=== PATIENT | male | born 1960 | race African-American/Black ===

== ENCOUNTER 2022-01-12 15:41 | Inpatient (IN) | payer BC, MEDICAID ==
[~2022-01-12] VITALS: Ht 177.8 cm; Wt 81.6 kg
[2022-01-12 15:41] VITALS: BP 108/73
--- NOTE | 2022-01-12 16:04 | NUR ---
[facility] CALLED FOR MORE PT INFO . NO NURSES AVAILABLE, MESSAGE LEFT WITH [employer] DEV[employer]OPER. CALL BACK NUMBER PROVIDED Addendum: 01/12/22 at 1750 by [facility] [phone]
--- NOTE | 2022-01-12 16:10 | NUR ---
61YO MALE PT BIBA FROM [facility] DUE TO GTUBE PULL OUT [id number]. PER [facility] , FACILITY STATES PT PULLED GTUBE OUT HIMSELF AND OFTEN FIDGETS ARMS ACROSS ABDOMEN. PT NON VERBAL AT BASELINE BUT IS AROUSABLE TO TOUCH AND VOICE. PT G TUBE SITE PRESENTS OPEN AND RED, NO ACTIVE BLEEDING. PT ABDOMEN NON TENDER TO TOUCH, FIRM , ROUND AND ACTIVE X4. NO VISIBLE DISTRESS W/ RESPIRATIONS EVEN AND UNLABORED, SKIN WARM TO TOUCH. NO WOUNDS PRESENT . BILATERAL FEET FLEXION ,PILLOWS PLACED UNDER PT FEET. PT PUT ON MONITOR, BED AT LOWEST POSITION , BED RAIL UP X2. HX: DM2, HTN, OSTEOPOROSIS, GERD, DYSPHAGIA, NONTRAUMATIC INTRACRANIAL HEMMORRHAGE, ENCEPHALOPATHY NKA
--- NOTE | 2022-01-12 17:52 | NUR ---
2ND ATTEMPT TO CONTACT FACILITY. ON HOLD WITH NO ANSWER
--- NOTE | 2022-01-12 18:25 | NUR ---
PT SWABBED FOR COVID(SUNITA) . HANDED TO LOAN INSPECTOR
[2022-01-12 18:56] LABS: BASOPHILS # (AUTO) 0.1 K/uL (0.00-0.22); BASOPHILS % (AUTO) 0.9 % (0.0-2.0); EOSINOPHILS # (AUTO) 0.1 K/uL (0-0.4); EOSINOPHILS % (AUTO) 0.4 % (0.0-4.0); HEMATOCRIT 44.5 % (36-52); HEMOGLOBIN 14.5 g/dL (12.0-18.0); LYMPHOCYTES # (AUTO) 2.9 K/uL (2.0-11.5); LYMPHOCYTES % (AUTO) 22.8 % (20.5-51.1); MEAN CORPUSCULAR HEMOGLOBIN 22 pg (27-31); MEAN CORPUSCULAR HGB CONC 33 g/dL (33-37); MEAN CORPUSCULAR VOLUME 67.3 fL (80-94); MONOCYTES # (AUTO) 1.3 K/uL (0.8-1.0); MONOCYTES % (AUTO) 10.5 % (1.7-9.3); NEUTROPHILS # (AUTO) 8.4 K/uL (1.8-7.7); NEUTROPHILS % (AUTO) 65.4 % (42.2-75.2); PLATELET COUNT (AUTO) 321 K/uL (140-450); RED BLOOD CELL COUNT(AUTO) 6.61 MIL/uL (4.20-6.10); RED CELL DISTRIBUTION WIDTH 14.3 % (11.6-13.7); WHITE BLOOD COUNT (AUTO) 12.8 K/uL (4.8-10.8)
[2022-01-12] MEDS ORDERED: AMLO10TA88 GT (18:59)
[2022-01-12] MEDS ORDERED: ASPI-1822 PO (18:59)
[2022-01-12] MEDS ORDERED: BACL10TA4 GT (18:59)
[2022-01-12] MEDS ORDERED: MAGN400S60 GT (19:21)
[2022-01-12] MEDS ORDERED: LANS30EC68 GT (19:21)
[2022-01-12] MEDS ORDERED: CALC-1646 GT (19:25)
--- NOTE | 2022-01-12 19:28 | NUR ---
REPORT GIVEN TO HECTOR DESIR. TRANSFER OF CARE AT THIS TIME
[2022-01-12 20:09] LABS: ALBUMIN 3.4 g/dL (3.4-5.0); ANION GAP 13.1 (8-16); CARBON DIOXIDE 30.4 mmol/L (21-32); CREATININE 0.6 mg/dL (0.6-1.3); POTASSIUM 3.5 mmol/L (3.5-5.1); PROTHROMBIN TIME 11.4 secs (10.8-13.4); TOTAL BILIRUBIN 0.7 mg/dL (0.0-1.0)
--- NOTE | 2022-01-12 20:17 | NUR ---
61YR MALE FROM [facility] C/O GTUBE DISLODGE. SITE IS FREE OF ANY DISCHARGE OR REDDNESS. PT IS NON VERBAL . BED BOUND INCOT WITH DIAPER. PT WILL BE ADMITTED FOR GTUBE REPLACEMENT. PT IS HOB ELEVATED. BED AT LOWEST POSITION.
--- NOTE | 2022-01-12 20:30 | NUR ---
PT CLEANED AND DIAPER CHANGED
[2022-01-12] MEDS ORDERED: guaiFENesin DM 200/20 MG-10 ML 10 ML UDC PO PRN (21:45)
[2022-01-12] MEDS ORDERED: POTASSIUM CHLORIDE 10 MEQ TABER PO PRN (21:45)
[2022-01-12] MEDS ORDERED: ZOLPIDEM 5 MG TAB PO PRN (21:45)
[2022-01-12] MEDS ORDERED: DOCUSATE SODIUM 100 MG GELCAP PO PRN (21:45)
[2022-01-12] MEDS ORDERED: ACETAMINOPHEN 325 MG TAB PO PRN (21:45)
[2022-01-12] MEDS ORDERED: HYDROcodone/APAP 7.5/325 MG 1 TAB PO PRN (21:45)
[2022-01-12] MEDS ORDERED: ONDANSETRON 4 MG/2 ML VIAL IM/IVP PRN (21:45)
[2022-01-12] MEDS ORDERED: DEXTROSE 5% 1,000 ML IV ONE (21:50)
[2022-01-12 22:47] LABS: MAGNESIUM 2.2 mg/dL (1.8-2.4); PHOSPHORUS 3.3 mg/dL (2.5-4.9)
--- NOTE | 2022-01-13 | NUR ---
PT CLEANED AND DIAPER CHANGED. TURNED PT TO SIDE
--- NOTE | 2022-01-13 03:35 | NUR ---
PT SLEEPING RESP EVEN AND UNLABORED. HOB ELEVATED BED AT LOWEST POSITION
--- NOTE | 2022-01-13 05:51 | NUR ---
CHANGED PT AND APPLIED CLEAN DIAPER. TURNED PT TO LEFT SIDE. HOB ELEVATED 30 DEGRESS. BED AT LOWEST POSITION
--- NOTE | 2022-01-13 07:24 | NUR ---
REPORT RECIEVED FROM THANG YOUNG FOR TRANSFER OF CARE.
--- NOTE | 2022-01-13 08:31 | NUR ---
DR MATA, ADMITTING MD AT BEDSIDE EVALUATING PT
--- NOTE | 2022-01-13 08:43 | NUR ---
Informed Dr. Stovall about PO Protonix, per Dr. Stovall "don't worry about it."
[2022-01-13] MEDS: PANTOPRAZOLE 40 MG TABEC PO SCH (09:00)
--- NOTE | 2022-01-13 10:30 | NUR ---
Urine sample obtained, walked to lab.
--- NOTE | 2022-01-13 11:01 | NUR ---
Patient was turned and repositioned. Patient was made clean and dry.
--- NOTE | 2022-01-13 11:08 | NUR ---
PATIENT HAS BEEN SCREENED AND CATEGORIZED HIGH NUTRITION RISK. PATIENT WILL BE SEEN WITHIN 1-2 DAYS OF ADMISSION. / TAWANNA SANDOVAL RD
--- NOTE | 2022-01-13 11:23 | NUR ---
01/13/22 RD INITIAL ASSESSMENT COMPLETED PLEASE REFER TO NUTRITION ASSESSMENT UNDER CARE ACTIVITY FOR ESTIMATED NUTRITIONAL NEEDS. 1. WHEN/IF MEDICALLY APPROPRIATE, RECOMMEND VITAL AF 1.2 WITH A GOAL RATE OF 65 ML/HR -FWF: 150 ML Q6H OR PER MD -START AT 20 ML/HR AND INCREASE BY 20 ML Q4H TOLERATED -WILL PROVIDE 100% OF ESTIMATED NUTRIENT NEEDS 2. RD TO FOLLOW-UP 2-3 DAYS, HIGH RISK TAWANNA SANDOVAL, RD
--- NOTE | 2022-01-13 13:06 | NUR ---
CALL PTS BROTHER ROWAN VILLAFUERTE ([phone]) FOR UPDATE AND NOTIFY WHEN HE MOVES TO THE FLOOR.
--- NOTE | 2022-01-13 14:02 | NUR ---
Patient is being provided with aubrey-care. Patient was left clean, dry and repositioned.
--- NOTE | 2022-01-13 14:56 | NUR ---
Patient's D5 bag is finished. Informed Dr. Stovall of bag finishing. Current blood sugar is 113. Recieved new orders from Dr. Stovall to continue IV D5 120cc/hour until G-tube is placed.
[2022-01-13] MEDS: DEXTROSE 5% 1,000 ML IV SCH ×2 (15:14→23:20)
--- NOTE | 2022-01-13 15:24 | NUR ---
DC PLANNING: THE PATIENT PRESENTED FROM [facility] WITH C/O G TUBE BEING OUT, PATIENT DC'D IT. GI CONSULT ORDERED FOR EVALUATION TO REPLACE G TUBE. WBC'S 12.8, NA+ 154. RAFIQ SPOKE WITH MAGALY AT [facility], THE PATIENT IS FPC WITH THEM THROUGH H-NET M/[facility]. HE IS NON-VERBAL SECONDARY TO CVA, HIS BROTHER ROWAN MAKES HIS DECISIONS. HE IS BED AND WC BOUND, RAFIQ SPOKE WITH HIS BROTHER ROWAN BY PHONE AND CONFIRMED HIS PHONE NUMBER. HE IS THE DPOA FOR HIS BROTHER AND STATES HE IS AVAILABLE AT ANY TIME TO GIVE INFORMATION OR CONSENTS. HE STATES THAT HIS BROTHER HAD A STROKE IN MAY OF 2017 AND WENT TO [facility] IN 2018. HE WOULD LIKE HIS BROTHER TO RETURN TO [facility] ONCE THE G TUBE HAS BEEN REPLACED AND THE PATIENT IS CLINICALLY STABLE. RAFIQ WILL FOLLOW. Addendum: 01/15/22 at 1134 by Claire Monsalve CM DC PLANNING: PLAN FOR PATIENT TO HAVE G TUBE REPLACED, REFERRAL FAXED TO [facility] FOR POSSIBLE DC BACK TO THEM LATER TODAY. THEY ARE WAITING TO REVIEW THE INFORMATION FOR ACCEPTANCE. RAFIQ ALSO SPOKE WITH ZHANG AT [facility], CLINICAL INFORMATION REVIEWED. AUTHORIZATION GIVEN FOR [email or web address] ([phone]), # [id number]. PATIENT WILL RETURN AT FPC LEVEL. CM WILL FOLLOW. Addendum: 01/15/22 at 1211 by Claire Monsalve CM DC PLANNING: PATIENT ACCEPTED TO ROOM 109B AT [facility], DR HINSON TO FOLLOW. NUMBER TO CALL REPORT IS [phone]. PATIENT TO BE PICKED UP BETWEEN 1800 AND 1900 BY [facility]. CM ALSO SPOKE WITH THE PATIENTS BROTHER ROWAN TO ENDORSE JANITOR TIME. CM WILL FOLLOW Addendum: 01/16/22 at 0829 by Claire Monsalve CM DC PLANNING: PATIENT DID NOT NOT DC, SPIKED TEMPERATURE TO 102.8, BLOOD CULTURES ORDERED. CM WILL FOLLOW. Addendum: 01/16/22 at 1053 by Claire Monsalve CM DC PLANNING: IF PATIENT IS DISCHARGED THIS WEEKEND, [facility] CAN BE USED, THEY ARE AVAILABLE WEDNESDAY AND WEDNESDAY BUT HAVE FEW TRANSPORTS AVAILABLE ON SUNDAYS. THEIR PHONE NUMBER IS [phone], AUTH NUMBER FROM [employer] FOR [facility] IS [id number]. CM ALSO SPOKE WITH MAGALY AT [facility] TO ENDORSE POSSIBLE DC TO THEM THIS WEEKEND, NURSING WILL NEED TO CALL UPDATED REPORT AND CONFIRM ROOM ASSIGNMENT. CM WILL FOLLOW.
--- NOTE | 2022-01-13 17:42 | NUR ---
Patient was provided with aubrey-care. Patient was made clean, dry and repositioned.
--- NOTE | 2022-01-13 17:56 | NUR ---
radiology at bedside.
--- NOTE | 2022-01-13 19:19 | NUR ---
Pt report given to THANG Hussein. Transfer of care at this time.
--- NOTE | 2022-01-13 21:58 | NUR ---
Patient will be admitted to care of [facility]. Admited to telemetry. Will go to room 112a. Belongings list completed. Report to michael.
[2022-01-14 01:54] VITALS: BP 120/69
[2022-01-14 07:12] LABS: BASOPHILS # (AUTO) 0.1 K/uL (0.00-0.22); BASOPHILS % (AUTO) 0.5 % (0.0-2.0); EOSINOPHILS # (AUTO) 0.1 K/uL (0-0.4); EOSINOPHILS % (AUTO) 0.7 % (0.0-4.0); HEMATOCRIT 43.7 % (36-52); HEMOGLOBIN 14.2 g/dL (12.0-18.0); LYMPHOCYTES # (AUTO) 1.8 K/uL (2.0-11.5); LYMPHOCYTES % (AUTO) 14.7 % (20.5-51.1); MEAN CORPUSCULAR HEMOGLOBIN 22 pg (27-31); MEAN CORPUSCULAR HGB CONC 32 g/dL (33-37); MEAN CORPUSCULAR VOLUME 67.8 fL (80-94); NEUTROPHILS # (AUTO) 9.5 K/uL (1.8-7.7); NEUTROPHILS % (AUTO) 76.1 % (42.2-75.2); PLATELET COUNT (AUTO) 271 K/uL (140-450); RED BLOOD CELL COUNT(AUTO) 6.44 MIL/uL (4.20-6.10); RED CELL DISTRIBUTION WIDTH 14.3 % (11.6-13.7); WHITE BLOOD COUNT (AUTO) 12.5 K/uL (4.8-10.8)
--- NOTE | 2022-01-14 07:25 | NUR ---
RECEIVED BEDSIDE REPORT FROM ASSISTANT PROFESSOR OF HISTORY NURSE FOR CONTINUITY OF CARE. PT IS APHASIC. ON RA WITH BREATHING UNLABORED. ON TELE MONITOR. G TUBE MALFUNCTION DX. CONDOM CATH IN PLACE. SKIN IS WARM, DRY, AND INTACT. IV IS INTACT AND PATENT. PT IS STABLE. PLAN OF CARE DISCUSSED.
[2022-01-14] MEDS: DEXTROSE 5% 1,000 ML IV SCH ×2 (07:41→17:51)
[2022-01-14 07:49] LABS: ANION GAP 12.7 (8-16); CARBON DIOXIDE 29.7 mmol/L (21-32); CREATININE 0.5 mg/dL (0.6-1.3); POTASSIUM 3.4 mmol/L (3.5-5.1)
[2022-01-14 08:00] VITALS: BP 121/85
[2022-01-14] MEDS: PANTOPRAZOLE 40 MG TABEC PO SCH (09:00)
--- NOTE | 2022-01-14 09:50 | NUR ---
PT WAS GIVEN BED BATH AND PT WAS REPOSITIONED. NEW LINENS WERE PLACED. NO DISTRESS NOTED. PT STABLE. WILL CONTINUE TO MONITOR.
--- NOTE | 2022-01-14 10:25 | NUR ---
PT. WITH LOW ISHMAEL SCALE AT MODERATE TO HIGH RISK, CONTINUE TO FOLLOW PRESSURE INJURY PREVENTION INTERVENTIONS. -POSITIONING: TURN AND REPOSITION PATIENT Q 2H OR SOONER USE PILLOWS TO KEEP BONY PROMINENCES FROM DIRECT CONTACT WITH SURFACES USE REPOSITIONING WEDGES TO PROVIDE 30-DEGREE ANGLE FOR SIDE LYING POSITIONS OFFLOADING OR FOAM DRESSING TO ALL TUBING TO PREVENT MEDICAL DEVICES RELATED PRESSURE INJURY -RE-EVALUATING AND MANAGING INCONTINENCE MONITOR SKIN CONDITION DURING POSITION CHANGE DO NOT MASSAGE REDNESS, BONY PROMINENCES FREQUENT ALBERT-CARE AND PROVIDE BARRIER CREAMS PRN IF SOILING MOISTURE CONTROL BY OFFER BED DACOSTA/URINAL /ABSORBENT PAD TO WICK AND HOLD MOISTURE KEEP SKIN DRY AND PROTECT FROM FRICTION -MANAGE FRICTION/SHEAR/MOBILITY KEEP HOB AT THE LOWEST LEVEL OF ELEVATION NO MORE THAN 30 DEGREE UNLESS OTHERWISE CONTRAINDICATED USE LIFT SHEET OR TRANSFER DEVICE TO MOVE PATIENT AND PREVENT LATERAL SHEER. PROTECT HEELS, ELBOWS BONY PROMINENCES WITH SKIN BERRIES OR FOAM DRESSING IF EXPOSED TO FRICTION OFFLOAD BILATERAL HEELS BY PLACING PILLOWS UNDER CALVES AT ALL TIMES, UNLESS OTHERWISE CONTRAINDICATED -PRESSURE REDISTRIBUTION SURFACE THERAPY REGGIE ISOFLEX MATTRESS -NUTRITION: PLEASE FOLLOW RD RECOMMENDATIONS AND OFFER NUTRITION SUPPLEMENTS IF ORDERED. PLEASE CONTACT WOUND CARE NURSE FOR ANY QUESTION AND CHANGE OF WOUND CONDITION.
[2022-01-14 12:00] VITALS: BP 100/70
--- NOTE | 2022-01-14 12:00 | NUR ---
PT IS RESTING IN SEMI FOWLERS POSITION. NO RESPIRATORY DISTRESS NOTED. PT IS AWAKE WITH EYES OPEN. DOES NOT RESPOND TO QUESTIONS, APHASIC. FLACC 0. PT STABLE.
[2022-01-14] MEDS ORDERED: MORPHINE SULFATE 4 MG/ML SYR IVP SCH (13:45)
--- NOTE | 2022-01-14 14:14 | NUR ---
PT WAS GIVEN MORPHINE 4 MG IVP PRIOR TO DR. PARKINSON ATTEMPTING TO RE-INSERT G TUBE. PT TOLERATING THIS FAIRLY, NO PAIN NOTED. DR. PARKINSON WAS UNABLE TO PLACE THE G TUBE THE OPENING HAS ALREADY CLOSED. DR. PARKINSON, PRIMARY RN, AND KEVIN CHARGE NURSE OBTAINED TELEPHONE CONSENT FOR G TUBE INSERTION VIA SURGERY FROM ROWAN VILLAFUERTE, [place]. ALL QUESTIONS ANSWERED. BROTHER ROWAN CONSENTED TO PROCEDURE. PT WAS TAKEN TO THE OR. WILL WAIT FOR ARRIVAL BACK TO UNIT.
[2022-01-14] MEDS ORDERED: fentaNYL citrate 0.05 MG/ML VIAL ONE (14:19)
[2022-01-14] MEDS ORDERED: MIDAZOLAM 2 MG/2 ML VIAL ONE (14:20)
--- NOTE | 2022-01-14 15:25 | NUR ---
PT IS BACK FROM THE GI LAB. DR. PARKINSON WAS UNABLE TO PLACE THE G TUBE BECAUSE THE PT WAS CLENCHING HIS TEETH SHUT. PT WAS BROUGHT BACK FROM THE GI LAB AND IS STABLE. BROTHER ROWAN IS AT THE BEDSIDE. WAS INFORMED BY JASWANT, OR NURSE, THAT THEY WILL SCHEDULE TO PLACE G TUBE UNDER ANESTHESIA ON WEDNESDAY. VS ARE STABLE; BP IS 121/79, HR 106, O2 SAT 95% ON RA, RR 20, AND TEMP 98.0 F.
[2022-01-14] MEDS ORDERED: MIDAZOLAM 2 MG/2 ML VIAL IVP ONE (15:50)
[2022-01-14] MEDS ORDERED: fentaNYL citrate 0.05 MG/ML VIAL IVP ONE (15:50)
[2022-01-14 16:00] VITALS: BP 107/78
--- NOTE | 2022-01-14 17:04 | NUR ---
BROTHER JUST LEFT THE BEDSIDE. PT IS SLEEPING IN SEMI FOWLERS POSITION. BREATHING IS UNLABORED AND REGULAR. PT WAS CHANGED AND REPOSITIONED. URINE WAS YELLOW, STRAW COLORED. PT IS STABLE.
--- NOTE | 2022-01-14 19:08 | NUR ---
ENDORSED PT TO DIRECTOR PRESALES NURSE FOR CONTINUITY OF CARE. PT IS STABLE. PLAN OF CARE DISCUSSED.
--- NOTE | 2022-01-14 19:30 | NUR ---
RECEIVED REPORT FROM DAY SHIFT NURSE YADIEL FOR CONTINUITY OF CARE. PATIENT WAS LYING SUPINE IN BED. PATIENT IS APHASIC. PATIENT IS CURRENTLY NOT IN ANY DISTRESS. PATIENT IS ON ROOM AIR, BREATHING IS NORMAL WITH SYMMETRICAL RISE AND FALL OF CHEST. IV IS PLACED IN LEFT HAND 22G WITH D5 RUNNING AT 70ML/HR. PATIENT IS AWAKE, BED IS IN LOWEST POSITION WITH WHEELS LOCKED, CALL LIGHT IS WITHIN REACH. WILL CONTINUE TO OBSERVE PATIENT.
[2022-01-14 20:00] VITALS: BP 132/81
--- NOTE | 2022-01-14 21:21 | NUR ---
PATIENT IS LYING ON BED, NO ANY COMPLAIN OF PAIN OR SHORTNESS OF BREATH AT THIS TIME, VITAL SIGN IS WITHIN THE NORMAL RANGE, CALL LIGHT IS WITHIN THE REACH, WILL CONTINUE TO MONITOR PATIENT.
[2022-01-15] VITALS (7 sets, daily range): BP systolic 110–132; BP diastolic 82–99
--- NOTE | 2022-01-15 00:19 | NUR ---
PATIENT IS LYING ON BED, VITAL SIGN IS WITHIN THE NORMAL RANGE, NO ANY RESPIRATORY DISTRESS NOTED AT THIS TIME, CALL LIGHT IS WITHIN THE REACH, WILL CONTINUE TO MONITOR PATIENT.
[2022-01-15] MEDS: DEXTROSE 5% 1,000 ML IV SCH (03:55)
--- NOTE | 2022-01-15 03:58 | NUR ---
HUNG NEW BAG OF DEXTROSE RUNNING @ 70ML. PATIENT BREATHING IS NORMAL WITH SYMMETRICAL RISE AND FALL OF CHEST. WILL CONTINUE TO MONITOR.
--- NOTE | 2022-01-15 04:00 | NUR ---
PATIENT 0400 VITALS WERE: BP 123/84, HR 97, TEMP 97.8, O2 96, RR 21. PATIENT WAS LYING IN BED STILL AWAKE FROM WAKING UP WHEN NEW IV BAG WAS HUNG. PATIENT'S BED WAS AT LOWEST LEVEL, BED ALARM WAS ON, WHEELS LOCKED, IV WAS RUNNING D5 @ 70ML/HR. WILL CONTINUE TO OBSERVE PATIENT.
--- NOTE | 2022-01-15 07:25 | NUR ---
RECEIVED REPORT FROM POWER BRAKE REBUILDER. PT IS APHASIC, NON VERBAL. CURRENT ON NPO EXCEPT MEDICATION. PER REPORT, PT WILL HAVE G TUBE PLACEMENT TODAY AT 10AM, CONSENT IN THE CHART. WILL FOLLOW UP TODAY. ALL SAFETY MEASURE IN PLACE, CALL LIGHT WITHIN REACH, WILL CONTINUE TO MONITOR.
--- NOTE | 2022-01-15 07:31 | NUR ---
ENDORSED TO DAY SHIFT NURSE YADIEL FOR CONTINUITY OF CARE. PATIENT IS STABLE.
[2022-01-15 08:05] LABS: HEMOGLOBIN 13.3 g/dL (12.0-18.0); WHITE BLOOD COUNT (AUTO) 10.8 K/uL (4.8-10.8)
[2022-01-15 08:06] LABS: BASOPHILS # (AUTO) 0.1 K/uL (0.00-0.22); BASOPHILS % (AUTO) 0.9 % (0.0-2.0); EOSINOPHILS # (AUTO) 0.3 K/uL (0-0.4); EOSINOPHILS % (AUTO) 2.5 % (0.0-4.0); HEMATOCRIT 40.5 % (36-52); LYMPHOCYTES # (AUTO) 2.7 K/uL (2.0-11.5); LYMPHOCYTES % (AUTO) 25.4 % (20.5-51.1); MEAN CORPUSCULAR HEMOGLOBIN 22 pg (27-31); MEAN CORPUSCULAR HGB CONC 33 g/dL (33-37); MEAN CORPUSCULAR VOLUME 67.5 fL (80-94); MONOCYTES # (AUTO) 1.2 K/uL (0.8-1.0); MONOCYTES % (AUTO) 11.4 % (1.7-9.3); NEUTROPHILS # (AUTO) 6.4 K/uL (1.8-7.7); NEUTROPHILS % (AUTO) 59.8 % (42.2-75.2); PLATELET COUNT (AUTO) 256 K/uL (140-450)
[2022-01-15 08:46] LABS: ANION GAP 12.5 (8-16); CARBON DIOXIDE 29.9 mmol/L (21-32); POTASSIUM 3.4 mmol/L (3.5-5.1)
[2022-01-15 08:47] LABS: CREATININE 0.5 mg/dL (0.6-1.3)
[2022-01-15] MEDS: PANTOPRAZOLE 40 MG TABEC PO SCH (08:59)
--- NOTE | 2022-01-15 09:00 | NUR ---
PO MEDICATION NOT GIVEN DUE TO PT IS NOT ABLE TO SWALLOW MEDICATION, PT IS PENDING FOR G TUBE PLACEMENT.
--- NOTE | 2022-01-15 09:16 | NUR ---
NOTIFIED DR MONACO PT K LEVEL 3.4, PENDING G TUBE PLACEMENT. SAID OK TO GIVE POTASSIUM 20MEQ IV, AND NOTIFY DR PARKINSON FOR G TUBE PLACEMENT. NOTIFIED DR PARKINSON PER MD ORDER.
--- NOTE | 2022-01-15 09:23 | NUR ---
BROTHER AT BEDSIDE AND QUESTIONING ABOUT G TUBE PLACEMENT, NOTIFIED BROTHER PROCEDURE WILL BE START AT 1000AM, STAFF FROM PROCEDURE AT BEDSIDE TO CONFIRM AND STATED WILL BE NAVAL MARINE ENGINEER PT AROUND 20 MIN. ALL QUESTION ANSWERED AT THIS TIME.
[2022-01-15] MEDS ORDERED: KCL 20 MEQ/WATER INJ PREMIX 100 ML IV SCH ×2 (09:30→12:00)
--- NOTE | 2022-01-15 10:30 | NUR ---
PT GO TO SURGERY FOR G TUBE PLACEMENT AT THIS TIME WITH HIS BROTHER AND OPERATION STAFF.
[2022-01-15] MEDS ORDERED: SUGAMMADEX SODIUM 200 MG/2 ML VIAL IV ONE (10:52)
[2022-01-15] MEDS ORDERED: PROPOFOL 200 MG/20 ML VIAL IV ONE (11:20)
--- NOTE | 2022-01-15 11:40 | NUR ---
RECEIVED PHONE CALL FROM [facility], SPEAK WITH COLT, SHE IS ASK IF PT WILL DISCHARGE SOON, NOTIFIED HER WILL DISCHARGE PT TODAY IF G TUBE PLACEMENT FUNCTION WELL PER MD ORDER.
--- NOTE | 2022-01-15 12:00 | NUR ---
PT RETURN FROM OPERATION, G TUBE IN PLACE WITH ABDOMEN BINDER IN PLACE TO PREVENT PT PULLING OUT G TUBE. PT HAS NO DISTRESS NOTED AT THIS TIME.
--- NOTE | 2022-01-15 13:45 | NUR ---
POST OPERATIVE ( G TUBE PLACEMENT) VS CHECK DONE, WITHIN NORMAL, WILL CONTINUE TO MONITOR.
--- NOTE | 2022-01-15 15:45 | NUR ---
PT RESTING ON BED, RESPIRATION EVEN, UNLABORED, NO DISTRESS NOTED. PT HAS JEVITY 1.2 AT 30ML /HR, RESIDUAL 5CC AT THIS TIME, CALL LIGHT WITHIN REACH, WILL CONTINUE TO MONITOR.
--- NOTE | 2022-01-15 16:00 | NUR ---
REPORT GIVEN TO THANG LONG AT [facility] AND INFORMED HER PT WILL BE DISCHARGE TO [facility] TODAY BETWEEN 1800 AND 1900
--- NOTE | 2022-01-15 16:06 | NUR ---
TELEPHONE CALLED TO PT'S BROTHER ROWAN VILLAFUERTE NOTIFIED HIM PT WILL BE DISCHARGE TO [facility] TODAY BETWEEN 1800 TO 1900. HE REQUEST TO GIVE HIM A CALL BACK WHEN GURNEY ARRIVE.
--- NOTE | 2022-01-15 16:55 | NUR ---
[facility] REPORTED PT HAS FEVER 102.8 ORAL. RECHECK TEMPERATURE VIA AXILLARY 102.9, OFFERED PT TYLENOL 650MG VIA G TUBE AND START COOLING MEASURE. WILL CONTINUE TO MONITOR.
--- NOTE | 2022-01-15 17:30 | NUR ---
RECHECK TEMPERATURE AXILLARY 102.6, NOTIFIED DR MONACO AT THIS TIME, AND WAITING TO MD RESPONSE BACK.
--- NOTE | 2022-01-15 17:44 | NUR ---
DR. MONACO REPLIED TO MESSAGE TO KEEP PATIENT AND NOT DISCHARGE. HE STATED HE WILL CANCEL DISCHARGE ORDER. HE ALSO ORDERED CBC, BMP, AND BLOOD CULTURES. Addendum: 01/15/22 at 1748 by Hortenisa Montiel RN ADDITIONAL COOLING MEASURES APPLIED. WILL MONITOR TEMP.
--- NOTE | 2022-01-15 17:47 | NUR ---
CALLED [facility] AND SPEAK WITH [place] TO CANCEL THE TRANSPORTATION TODAY.
--- NOTE | 2022-01-15 17:49 | NUR ---
TELEPHONE CALLED TO [facility] AND SPEAK WITH CINDY MALAVE REGARDING CANCEL THE DISCHARGE ORDER TODAY.
--- NOTE | 2022-01-15 17:54 | NUR ---
TELEPHONE CALLED TO PT'S BROTHER ROWAN AND NOTIFY HIM THAT PT WILL NOT GET DISCHARGE TODAY DUE TO FEVER. HE MAKE AWARE AND SAID WILL CHECK WITH NURSE TOMORROW.
--- NOTE | 2022-01-15 18:00 | NUR ---
TEMPERATURE RECHECK AT THIS TIME 102.4 AXILLARY. CONTINUE COOLING MEASURE. WILL CONTINUE TO MONITOR.
--- NOTE | 2022-01-15 18:47 | NUR ---
RECHECKED TEMP TEMPORAL AND IT WAS 99.[address] MEASURES IN PLACE. PT WAS CHANGED AND REPOSITIONED.
--- NOTE | 2022-01-15 19:00 | NUR ---
TEMPERATURE RECHECK AT THIS TIME 99. WILL ENDORSE TO TUNNELLER FOR CONTINUE MONITOR PT'S TEMPERATURE.
--- NOTE | 2022-01-15 19:00 | NUR ---
TEMPERATURE RECHECK AT THIS TIME 99, WILL ENDORSE TO RACEHORSE TRAINER FOR CONTINUE MONITOR TEMPERATURE. POINT OF CARE DISCUSSED.
--- NOTE | 2022-01-15 19:38 | NUR ---
ENDORSED PT TO TRIMMER HAND NURSE FOR CONTINUITY OF CARE. PT IS STABLE. PLAN OF CARE DISCUSSED.
[2022-01-15 20:17] LABS: BASOPHILS # (AUTO) 0.1 K/uL (0.00-0.22); BASOPHILS % (AUTO) 0.3 % (0.0-2.0); EOSINOPHILS # (AUTO) 0.1 K/uL (0-0.4); EOSINOPHILS % (AUTO) 0.3 % (0.0-4.0); HEMOGLOBIN 14.3 g/dL (12.0-18.0); LYMPHOCYTES # (AUTO) 2.7 K/uL (2.0-11.5); LYMPHOCYTES % (AUTO) 14.6 % (20.5-51.1); MEAN CORPUSCULAR HEMOGLOBIN 22 pg (27-31); MEAN CORPUSCULAR HGB CONC 33 g/dL (33-37); MEAN CORPUSCULAR VOLUME 67.2 fL (80-94); MONOCYTES # (AUTO) 1.3 K/uL (0.8-1.0); MONOCYTES % (AUTO) 6.8 % (1.7-9.3); NEUTROPHILS # (AUTO) 14.4 K/uL (1.8-7.7); PLATELET COUNT (AUTO) 289 K/uL (140-450); RED BLOOD CELL COUNT(AUTO) 6.55 MIL/uL (4.20-6.10); RED CELL DISTRIBUTION WIDTH 13.9 % (11.6-13.7); WHITE BLOOD COUNT (AUTO) 18.5 K/uL (4.8-10.8)
[2022-01-15 20:30] LABS: ANION GAP 11.5 (8-16); CARBON DIOXIDE 28.8 mmol/L (21-32); CREATININE 0.7 mg/dL (0.6-1.3); POTASSIUM 3.3 mmol/L (3.5-5.1)
--- NOTE | 2022-01-15 22:44 | NUR ---
PATIENT AWAKE APHASIC TO GO HOME IN A.M. TO [place] PATIENT GT WORKING OK NO RESIDUAL HAS JEVRTY INFUSING 50 HOUR. NO RESIDUAL 1999. TEMP 98 LABS WHERE DRAWN. HAS D5W AT 70 HOUR. PATIENT INCONT. OF URINE. HAS 22 GA IN LEFT HAND. NO DISTRESS NOTED.
--- NOTE | 2022-01-16 07:30 | NUR ---
RECEIVED REPORT FROM INCENDIARIES SUPERVISOR PT'S TEMPERATURE 98 THIS MORNING. PT RESTING ON BED WITH G TUBE FEEDING JEVITY 1.2AT 50ML /HR. PER REPORT NO RESIDUAL AT THIS TIME. POINT OF CARE DISCUSSED, ALL SAFETY MEASURE IN PLACE, CALL LIGHT WITHIN REACH, WILL CONTINUE TO MONITOR.
[2022-01-16 08:00] VITALS: BP 112/75
[2022-01-16] MEDS: PIPERACILLIN/TAZOBACTAM 3.375 GM in DEXTROSE 5% 50 ML IV SCH ×3 (09:04→20:03)
[2022-01-16] MEDS: LACTULOSE 20 GM/30 ML UDC PO SCH (09:05)
--- NOTE | 2022-01-16 09:18 | NUR ---
NOTIFIED DR MONACO PT'S POTASSIUM LEVEL 3.3. MD ORDERED K 40MEQ VIA G TUBE AND ORDER CBC, BMP TODAY. ORDER NOTED AND CARRIED OUT.
[2022-01-16] MEDS ORDERED: POTASSIUM CHLORIDE 20% 40 MEQ/15 ML UDC GT SCH (09:20)
[2022-01-16 12:04] LABS: BASOPHILS % (AUTO) 0.3 % (0.0-2.0); EOSINOPHILS # (AUTO) 0.1 K/uL (0-0.4); EOSINOPHILS % (AUTO) 0.6 % (0.0-4.0); HEMATOCRIT 44.6 % (36-52); HEMOGLOBIN 14.6 g/dL (12.0-18.0); LYMPHOCYTES # (AUTO) 1.8 K/uL (2.0-11.5); LYMPHOCYTES % (AUTO) 13.3 % (20.5-51.1); MEAN CORPUSCULAR HEMOGLOBIN 22 pg (27-31); MEAN CORPUSCULAR HGB CONC 33 g/dL (33-37); MEAN CORPUSCULAR VOLUME 67.9 fL (80-94); MONOCYTES # (AUTO) 1.3 K/uL (0.8-1.0); MONOCYTES % (AUTO) 9.7 % (1.7-9.3); NEUTROPHILS # (AUTO) 10.5 K/uL (1.8-7.7); NEUTROPHILS % (AUTO) 76.1 % (42.2-75.2); PLATELET COUNT (AUTO) 263 K/uL (140-450); RED BLOOD CELL COUNT(AUTO) 6.57 MIL/uL (4.20-6.10); RED CELL DISTRIBUTION WIDTH 14.5 % (11.6-13.7); WHITE BLOOD COUNT (AUTO) 13.8 K/uL (4.8-10.8)
[2022-01-16 12:13] LABS: ANION GAP 13.4 (8-16); CARBON DIOXIDE 27.3 mmol/L (21-32); CREATININE 0.6 mg/dL (0.6-1.3); POTASSIUM 3.7 mmol/L (3.5-5.1)
--- NOTE | 2022-01-16 12:35 | NUR ---
MEDICATION ADMIN AT THIS TIME VIA IVPB, PT TOLERATED WELL. IV SITE INTACT AND PATENT, PT ON BED, RESPIRATION EVEN, UNLABORED, NO DISTRESS NOTED. CALL LIGHT WITHIN REACH, WILL CONTINUE TO MONITOR.
--- NOTE | 2022-01-16 12:47 | NUR ---
NOTIFIED DR MONACO PT'S WBC COME BACK 13.8 AND EARLY THIS MORNING WAS 18.5. MD SAID WILL KEEP PT TILL TOMORROW. AND WILL DISCHARGE IF INITIAL CULTURES ARE NEGATIVE.
--- NOTE | 2022-01-16 15:53 | NUR ---
01/16/22 RD FOLLOW UP COMPLETED PLEASE REFER TO NUTRITION ASSESSMENT UNDER CARE ACTIVITY FOR ESTIMATED NUTRITIONAL NEEDS. 1. CONTINUE JEVITY 1.2 @ 50 ML/HR TOLERATED -WHEN/IF MEDICALLY APPROPRIATE, RECOMMEND INCREASING JEVITY 1.2 GOAL RATE TO 65 ML/HR TO MEET 100% ESTIMATED NUTRIENT NEEDS 2. RD TO FOLLOW-UP 2-3 DAYS, HIGH RISK TAWANNA SANDOVAL, RD
[2022-01-16 16:00] VITALS: BP 119/79
--- NOTE | 2022-01-16 17:30 | NUR ---
PT RESTING ON BED, RESPIRATION EVEN, UNLABORED, NO DISTRESS NOTED, RESIDUAL 15ML, WILL CONTINUE TO MONITOR.
--- NOTE | 2022-01-16 19:06 | NUR ---
POINT OF CARE DISCUSSED WITH COMMUNITY AMBASSADOR FOR CONTINUE CARE.
--- NOTE | 2022-01-16 19:07 | NUR ---
RECEIVED REPORT FROM DAY RN. PT OBSERVED RESTING IN BED WITH EYES OPEN TRACKS NURSE, APHASIC, BEDBOUND, FLACC0. WITH G TUBE FEEDING JEVITY 1.2AT 50ML /HR. PER REPORT NO RESIDUAL AT THIS TIME. SKIN IS WARM DRY AND INTACT. RESPIRATIONS ARE EQUAL AND UNLABORED ON ROOM AIR. MENJIVAR CATH IN PLACE DRAINING YELLOW URINE WILL COLLECT UA AND SENT TO LAB. POINT OF CARE DISCUSSED PT UNABLE TO COMPREHEND, ALL SAFETY MEASURE IN PLACE, CALL LIGHT WITHIN REACH, WILL CONTINUE TO MONITOR.
[2022-01-16 20:00] VITALS: BP 137/95
--- NOTE | 2022-01-16 20:03 | NUR ---
manuelito zosyn now infusing as per orders. attempted oral care pt refused. pt snatched tooth brush and Ruby pt refusing to open mouth. will attempt at a later time. all safety measures are in place. will continue to monitor.
[2022-01-16 21:34] LABS: APPEARANCE,URINE CLEAR (CLEAR); BILIRUBIN,URINE 1+ (NEGATIVE); BLOOD, URINE TRACE-I (NEGATIVE); COLOR,URINE YELLOW (YELLOW); LEUKOCYTE ESTERASE ,URINE NEGATIVE (NEGATIVE); NITRITE, URINE NEGATIVE (NEGATIVE); UGLUCOSE NEGATIVE (NEGATIVE)
[2022-01-16 21:46] LABS: RBC,URINE 0-5 /HPF (0-5); WBC,URINE NONE SEEN /HPF (0-5)
--- NOTE | 2022-01-16 22:29 | NUR ---
PATIENT WAS CLEANED AND REPOSITION WITH ASSISTANCE OF SURG RN. ALL NEEDS MET. SAFETY MEASURES ARE IN PLACE. WILL CONTINUE TO MONITOR.
--- NOTE | 2022-01-17 00:03 | NUR ---
ROUNDS MADE. PT APPEARS TO BE ASLEEP. RESTING IN BED WITH EYES CLOSED. CHEST RISE AND FALL NOTED.
--- NOTE | 2022-01-17 02:57 | NUR ---
ROUNDS MADE. PT APPEARS TO BE ASLEEP. RESTING IN BED WITH EYES CLOSED. CHEST RISE AND FALL NOTED.
[2022-01-17 04:00] VITALS: BP 132/89
[2022-01-17] MEDS: PIPERACILLIN/TAZOBACTAM 3.375 GM in DEXTROSE 5% 50 ML IV SCH ×3 (04:00→20:26)
--- NOTE | 2022-01-17 04:41 | NUR ---
VITAL SIGNS ARE WITHIN NORMAL LIMITS. ALL SAFETY MEASURES ARE IN PLACE. WILL CONTINUE TO MONITOR
[2022-01-17 07:04] LABS: BASOPHILS # (AUTO) 0.1 K/uL (0.00-0.22); BASOPHILS % (AUTO) 0.4 % (0.0-2.0); EOSINOPHILS # (AUTO) 0.2 K/uL (0-0.4); RED CELL DISTRIBUTION WIDTH 14.1 % (11.6-13.7)
[2022-01-17 07:13] LABS: EOSINOPHILS % (AUTO) 1.1 % (0.0-4.0); HEMOGLOBIN 13.1 g/dL (12.0-18.0); LYMPHOCYTES # (AUTO) 2.5 K/uL (2.0-11.5); LYMPHOCYTES % (AUTO) 17.9 % (20.5-51.1); MEAN CORPUSCULAR HEMOGLOBIN 22 pg (27-31); MEAN CORPUSCULAR HGB CONC 33 g/dL (33-37); MEAN CORPUSCULAR VOLUME 67.1 fL (80-94); MONOCYTES # (AUTO) 1.6 K/uL (0.8-1.0); MONOCYTES % (AUTO) 11.2 % (1.7-9.3); NEUTROPHILS # (AUTO) 9.9 K/uL (1.8-7.7); NEUTROPHILS % (AUTO) 69.4 % (42.2-75.2); PLATELET COUNT (AUTO) 282 K/uL (140-450); RED BLOOD CELL COUNT(AUTO) 5.97 MIL/uL (4.20-6.10); WHITE BLOOD COUNT (AUTO) 14.2 K/uL (4.8-10.8)
[2022-01-17 07:15] LABS: ANION GAP 11.2 (8-16); CARBON DIOXIDE 29.1 mmol/L (21-32); CREATININE 0.6 mg/dL (0.6-1.3); POTASSIUM 3.3 mmol/L (3.5-5.1)
--- NOTE | 2022-01-17 07:30 | NUR ---
received report from michael carmona
[2022-01-17 08:00] VITALS: BP 113/85
[2022-01-17] MEDS ORDERED: POTASSIUM CHLORIDE 20% 40 MEQ/15 ML UDC GT PRN (08:15)
[2022-01-17] MEDS: LACTULOSE 20 GM/30 ML UDC PO SCH (08:43)
--- NOTE | 2022-01-17 09:00 | NUR ---
due meds given
--- NOTE | 2022-01-17 13:30 | NUR ---
off unit to ct
[2022-01-17 16:00] VITALS: BP 136/88
--- NOTE | 2022-01-17 17:00 | NUR ---
notified dr dugan regarding ct results, ordered fleet enema
[2022-01-17] MEDS ORDERED: SODIUM PHOSPHATE 118 ML ENEM RC ONE (17:15)
--- NOTE | 2022-01-17 19:30 | NUR ---
RECEIVED REPORT FROM AM NURSE ALBERTINA RN FOR CONTINUITY OF CARE. PT IS AWAKE LYING IN BED. A&OX ZERO. ON RM AIR/O2WITH NO ACUTE DISTRESS NOTED.RR EVEN AND UNLABORED WITH EQUAL CHEST RISE. GI W/ G-TUBE FEEDING JEVITY 1.2@50CC/HR WITH 100CC WATER FLUSH Q6 HRS. PT' HAS CONDOM CATH BUT IS INCONTINENT OF BOWEL AND BLADDER. PT IS BEDBOUND. ALL SAFETY MEASURES IN PLACE. BED IN LOW AND LOCKED POSITION. CALL LIGHT WITHIN REACH. WILL CONTINUE WITH FREQ ROUNDS.
[2022-01-18] MEDS: PIPERACILLIN/TAZOBACTAM 3.375 GM in DEXTROSE 5% 50 ML IV SCH (04:02)
--- NOTE | 2022-01-18 06:00 | NUR ---
FREQ ROUNDS CHECKED PT Q 2HRS. PT IS STABLE. AWAKE IN BED. RR EVEN AND UNLABORED WITH EQUAL CHEST RISE. IV RAC 20G FLUSHED AND PATENT ZOSYN IVPB INFUSED Q 8HRS WITHOUT DIFFICULTY. ALL SAFETY MEASURES IN PLACE .BED IN LOW AND LOCKED POSITION. WILL CONTINUE TO MONITOR.
[2022-01-18 07:03] LABS: BASOPHILS # (AUTO) 0.1 K/uL (0.00-0.22); BASOPHILS % (AUTO) 0.6 % (0.0-2.0); EOSINOPHILS # (AUTO) 0.2 K/uL (0-0.4); HEMATOCRIT 40.5 % (36-52); HEMOGLOBIN 13.1 g/dL (12.0-18.0); LYMPHOCYTES # (AUTO) 2.3 K/uL (2.0-11.5); LYMPHOCYTES % (AUTO) 19.6 % (20.5-51.1); MEAN CORPUSCULAR HEMOGLOBIN 22 pg (27-31); MEAN CORPUSCULAR HGB CONC 32 g/dL (33-37); MEAN CORPUSCULAR VOLUME 67.8 fL (80-94); MONOCYTES # (AUTO) 1.5 K/uL (0.8-1.0); MONOCYTES % (AUTO) 12.4 % (1.7-9.3); NEUTROPHILS # (AUTO) 7.8 K/uL (1.8-7.7); NEUTROPHILS % (AUTO) 65.4 % (42.2-75.2); PLATELET COUNT (AUTO) 298 K/uL (140-450); RED BLOOD CELL COUNT(AUTO) 5.98 MIL/uL (4.20-6.10); RED CELL DISTRIBUTION WIDTH 13.9 % (11.6-13.7); WHITE BLOOD COUNT (AUTO) 11.9 K/uL (4.8-10.8)
--- NOTE | 2022-01-18 07:20 | NUR ---
ENDORSED PATIENT TO ALBERTINA COBB RN FOR CONTINUITY OF CARE. PT IS STABLE. ALL NEEDS MET THROUGHOUT THE SHIFT.
--- NOTE | 2022-01-18 07:30 | NUR ---
RECEIVED REPORT FROM NIGHT NURSE. AOX0, APHASIC, BEDBOUND. NO SOB ON RA, NO S/S OF PAIN. TELE MONITOR SHOWING SR. WITH IV ON RAC 20G ON SL. CALL LIGHT WITHIN REACH. WILL CONTINUE MONITORING
[2022-01-18 07:34] LABS: ANION GAP 12.9 (8-16); CARBON DIOXIDE 28.8 mmol/L (21-32); CREATININE 0.6 mg/dL (0.6-1.3); POTASSIUM 3.7 mmol/L (3.5-5.1)
[2022-01-18] MEDS: LACTULOSE 20 GM/30 ML UDC PO SCH (08:22)
[2022-01-18] MEDS ORDERED: MAGNESIUM CITRATE 300 ML BTL PO ONE (08:30)
[2022-01-18] MEDS ORDERED: MAGNESIUM CITRATE 300 ML BTL PO SCH (08:40)
--- NOTE | 2022-01-18 09:00 | NUR ---
DUE MEDS GIVEN, TOLERATED WELL
--- NOTE | 2022-01-18 10:00 | NUR ---
SEEN AND EXAMINED BY DR MONACO AND DR PARKINSON, CLEARED FOR DISCHARGE
[2022-01-18] MEDS ORDERED: LACTULOSE 20 GM/30 ML UDC PO SCH ×2 (10:20→13:00)
--- NOTE | 2022-01-18 11:53 | NUR ---
REPORT GIVEN TO JUSTIN FROM [facility] ARRANGED TRANSPORT WITH [facility] A[facility] AT 1700
[2022-01-18] MEDS: AMOXICILLIN SUSP 250 MG/5 ML GT SCH ×2 (12:13→12:18)
[2022-01-18] MEDS ORDERED: AMOX100P7 PO (14:06)
--- NOTE | 2022-01-18 15:00 | NUR ---
PT RESTING IN BED NO APPARENT DISTRESS, NO SOB ON ROOM AIR
--- NOTE | 2022-01-18 17:30 | NUR ---
LARGE BM NOTED, ALBERT CARE DONE
--- NOTE | 2022-01-18 17:45 | NUR ---
PICKED UP BY [facility] TO MARY ASTORGA
== END 2022-01-18 17:45 | DRG 393 ==
LOC: MED 15:41 → MTU 21:45
PROVIDERS: ADMIT Student in an Organized Health Care Education/Training Program; ATTEND Student in an Organized Health Care Education/Training Program
PROC: 0DH63UZ Insertion of Feeding Device into Stomach, Percutaneous Approach (ICD-10-PCS; principal; 2022-01-15 10:00)
DX: K94.23 Gastrostomy malfunction (principal); G93.41 Metabolic encephalopathy; G93.1 Anoxic brain damage, not elsewhere classified; E87.0 Hyperosmolality and hypernatremia; R47.01 Aphasia; E11.9 Type 2 diabetes mellitus without complications; I10 Essential (primary) hypertension; D72.829 Elevated white blood cell count, unspecified; M81.0 Age-related osteoporosis without current pathological fracture; K21.9 Gastro-esophageal reflux disease without esophagitis; R13.10 Dysphagia, unspecified; Z20.822 Contact with and (suspected) exposure to COVID-19; Y83.8 Other surgical procedures as the cause of abnormal reaction of the patient, or of later complication, without mention of misadventure at the time of the procedure; Y82.8 Other medical devices associated with adverse incidents; Z79.82 Long term (current) use of aspirin; Z79.899 Other long term (current) drug therapy; Y92.89 Other specified places as the place of occurrence of the external cause; Z87.820 Personal history of traumatic brain injury
CPT/HCPCS: 36415; 71045; 80048; 80053; 81001; 82150; 82948; 83690; 83735; 84100; 85025; 85610; 85730; 87040; 87081; 93005; 97110; 99285; J2250; J2270; J2543; J2704; J3010; J3480; J7030; J7060; Q0092; Q9967